=== PATIENT | female | born 1980 | race Two or more races ===

== ENCOUNTER 2025-02-19 23:03 | Emergency (ER) | payer MEDICAID, SELFPAY ==
[2025-02-19 23:25] VITALS: BP 113/75; PULSE 86; RESP 20; TEMP 36.7; O2SAT 100
[2025-02-19] MEDS: NAPROXEN 250 MG TABLET 500 MG PO (23:54)
--- NOTE | 2025-02-20 04:13 | EDNOTE_ITS ---
Upper Extremity Injury RME/HPI General Chief Complaint: Hand/Wrist Problems Stated Complaint: RIGHT HAND PAIN Time Seen by Provider: 02/19/25 23:33 Arrival date/time: 02/19/25 23:03 45F with no significant PMH presents to ED with R wrist pain/swelling w/o fall/trauma. Limitations: no limitations Related Data Previous Rx's ?Medication ?Instructions ?Recorded cetirizine 10 mg tablet 10 mg PO QDAY PRN allergy sy mptoms 05/29/22 #20 tabs pseudoephedrine HCl 30 mg tablet 30 mg PO Q6H #20 tabs 05/29/22 ibuprofen 600 mg tablet 600 mg PO Q6H #30 tabs 05/21 Allergies Allergy/AdvReac Type Severity Reaction Status Date / Time No Known Allergies Allergy Verified 05/29/22 18:56 Review of Systems Review of Systems Systems Reviewed: All systems reviewed, normal except as documented Constitutional Constitutional: Reports system reviewed and no additional complaints, except as documented, Denies fever(s) and Denies headache(s) ENT Ears, Nose, Mouth, and Throat: Denies disequilibrium and Denies headache(s) Cardiovascular Cardiovascular: Reports system reviewed and no additional complaints, except as documented, Denies chest pain and Denies dyspnea Respiratory Respiratory: Reports system reviewed and no additional complaints, except as documented, Denies cough and Denies dyspnea Gastrointestinal Gastrointestinal: Reports system reviewed and no additional complaints, except as documented, Denies abdominal pain, Denies nausea and Denies vomiting Musculoskeletal Musculoskeletal: Reports as per HPI, Reports arthralgias and Reports joint swelling Neurologic Neurologic: Reports system reviewed and no additional complaints, except as documented, Denies confusion, Denies disequilibrium and Denies headache(s) Psychiatric Psychiatric: Denies confusion Past Medical History Social History SMOKING STATUS: Never smoker ED Exam General Limitations: Present no limitations General appearance: Present alert and in no apparent distress Head Head exam: Present atraumatic Eye Eye exam: Present normal appearance, PERRL and EOMI ENT ENT exam: Present normal exam, normal oropharynx and mucous membranes moist Neck Neck exam: Present normal inspection, full ROM and trachea midline Chest Chest inspection: Present normal inspection and symmetric chest wall rise Respiratory Respiratory exam: Present normal lung sounds bilaterally Cardiovascular Cardiovascular exam: Present regular rate, normal rhythm and normal heart sounds Abdominal Exam Abdominal exam: Present soft and normal bowel sounds Extremities Exam Extremities exam: Present full ROM Expanded Upper Extremity Exam Forearm/Wrist exam: Present full ROM (R wrist), tenderness and swelling Back Exam Back exam: Present normal inspection and full ROM Neurological Exam Neurological exam: Present alert, oriented X3 and CN II-XII intact Psychiatric Psychiatric exam: Present normal affect and normal mood Skin Skin exam: Present warm, dry, intact and normal color Course Quality Measures none Orders Category Date Time Status saqib wrap [Splint / Immobilizer] STAT Care 02/19/25 23:33 Completed Naproxen [Naprosyn] Med 02/19/25 23:33 Discontinued 500 mg PO X1 ONE Vital Signs Vital signs: Vital Signs Temperature 98.1 F 02/19/25 23:25 Pulse Rate 86 02/19/25 23:25 Respiratory Rate 20 02/19/25 23:25 Blood Pressure 113/75 02/19/25 23:25 Pulse Oximetry (%) 100 02/19/25 23:25 Oxygen Delivery Method Room Air 02/19/25 23:25 O2 at 100% on RA and WNLs Extremity Injury MDM Narrative MDM Narrative:: 45F with no significant PMH presents to ED with R wrist pain/swelling w/o fall/trauma. Physical exam reveals R wrist swelling and tenderness. No redness and mostly intact tough painful ROM. Patient is afebrile, calm, and alert. Likely non-traumatic MSK-related vs gout vs rheumatic. Given SAQIB, meds, and certified genetic counselor. Patient data External records reviewed:: [facility] previous records Clinical information provided by:: patient Social determinants that could affect healthcare access:: none Patient has the following chronic illnesses:: none How is presenting disease/condition affected by chronic disease/condition?: no chronic disease Evaluation data The following diagnostics were reviewed and interpreted by me:: other (specify) (none) Lab and/or radiology exams considered but not ordered:: not ordered Interpretation Summary: n/a Medications / Prescriptions Medications or Prescriptions considered but not ordered:: ordered Medication administrations:: Medication Administration History Discontinued Medications Naproxen (Naproxen 250 Mg Tablet) 500 mg PO X1 ONE Stop: 02/19/25 23:34 Last Admin: 02/19/25 23:54 Dose: 500 mg Documented By: above Consultations Consultation(s) initiated? (list below): No Diagnosis Upper Extremity Injury Differential Diagnosis: sprain and strain of wrist, fracture of wrist, finger sprain, dislocation of finger, Colles' fracture, fracture of hand and other (joint swelling) Most likely diagnosis given after review of the tests above:: joint swelling Admission Indicated Admission indicated?: not indicated Admission Request Was there a request for admission?: No Disposition Plan Disposition Plan: Discharge Discharge Attestation Discharge Attestation: The patient and all family members were given an opportunity to ask questions and understood the discharge instructions. Discharge instructions specifically effects, indications for sooner follow up or return to the emergency department, and the expected course of current diagnosis. Patient condition: Stable Discharge Plan Plan Patient Disposition: HOME (Self Care) Disposition Comment: Stable Prescriptions/Referrals Prescriptions/Med Rec: No Action pseudoephedrine HCl 30 mg tablet 30 mg PO Q6H Qty: 20 0RF cetirizine 10 mg tablet 10 mg PO QDAY PRN (Reason: allergy symptoms) Qty: 20 0RF ibuprofen 600 mg tablet 600 mg PO Q6H Qty: 30 0RF Problem List Clinical Impression: Joint swelling Patient/Caregiver Discharge Instructions Education Materials: ED Arthralgia Additional Instructions: Please follow-up with PCP within 24-48 hours and return immediately if symptoms worsen. If problem persists, recommend outpatient PT and/or MRI follow-up. In the meantime, rest, use ice/heat, and/or compression. Print Language: Tanzanian Stand Alone Forms: Patient Portal Info Letter RAMESH/FAN Supervising Physician RAMESH/FAN Supervising Physician: Dr. Ryan
== END 2025-02-20 00:05 | disposition home or self-care (01) ==
LOC: SERX 02-20 00:03
PROVIDERS: Emergency Provider Emergency Medicine
DX: M25.431 Effusion, right wrist (principal)
CPT/HCPCS: 99282; A9270